=== PATIENT | male | born 1950 | race Caucasian/White ===

== ENCOUNTER 2021-04-18 20:34 | Emergency (ER) | payer OTHER ==
[2021-04-18 21:07] VITALS: BP 150/80; PULSE 86; TEMP 98.5; BMI 28.8
[2021-04-18 22:24] LABS: BASO % 3.6 % (0-2.0); EOS % 10.9 % (0-4.5); HEMATOCRIT 36.3 % (35.4-49); LYMPH % 28.4 % (8-40); MCH 33.1 pg (25.7-33.7); MCHC 33.2 g/dl (32.0-35.9); MEAN CELL VOLUME 99.7 fl (80-96); MONO % 10.4 % (3.8-10.2); NEUT % 46.7 % (42.8-82.8); PLATELET COUNT 196 K/MM3 (134-434); RBC 3.64 M/mm3 (4.00-5.60); RDW 15.6 % (11.9-15.9)
[2021-04-18 22:29] LABS: INR 0.93 (0.83-1.09); PROTHROMBIN TIME (PATIENT) 11.3 SEC (9.7-13.0)
[2021-04-18 22:32] LABS: ACTIVATED PTT 29.9 SECONDS (25.2-36.5)
[2021-04-18 22:48] LABS: ALBUMIN 3.4 g/dl (3.4-5.0); BLOOD UREA NITROGEN 13.7 mg/dL (7-18)
[2021-04-18 22:51] LABS: CREATININE 0.6 mg/dL (0.55-1.3)
[2021-04-18 22:53] LABS: BILIRUBIN,TOTAL 1.1 mg/dL (0.2-1); TOT PROT 6.8 g/dl (6.4-8.2)
[2021-04-18] MEDS ORDERED: POTASSIUM CHLORIDE TABS 20 MEQ TABLET.ER (FP) PO ONE (23:11)
[2021-04-18] MEDS ORDERED: POTASSIUM CHLORIDE TABS 10 MEQ TABLET.ER (FP) ONE (23:52)
== END 2021-04-19 04:52 | disposition home or self-care (01) ==
LOC: JER 20:34
DX: F10.920 Alcohol use, unspecified with intoxication, uncomplicated (principal); S00.81XA Abrasion of other part of head, initial encounter; S02.2XXA Fracture of nasal bones, initial encounter for closed fracture
CPT/HCPCS: 36415; 70450-TC; 70486-TC; 72125-TC; 80053; 84484; 85025; 85610; 85730; 93005; 93010; 99285-25